=== PATIENT | female | born 1970 | race African-American/Black ===

== ENCOUNTER 2017-12-02 13:31 | Emergency (ER) | payer MEDICAID ==
[~2017-12-02] VITALS: Ht 167.6 cm; Wt 86.0 kg
[~2017-12-02 13:31] MED LIST: ACET-2708 PO; BECL8.7A6 IH; CARI350T27 PO; GABA-529 PO; ISOS20TA57 PO; ISOS30TA6 PO; METF500T4 PO; SIMV20TA6 PO
[2017-12-02] MEDS ORDERED: ONDANSETRON 4MG ODT PO ONE (15:30)
[2017-12-02] MEDS ORDERED: MORPHINE SULFATE 10 MG/ML CPJ IM ONE (15:30)
[2017-12-02 15:58] VITALS: BP 122/67
== END 2017-12-02 16:27 | disposition home or self-care (01) ==
LOC: ER 14:02
DX: M79.604 Pain in right leg (principal); G89.29 Other chronic pain; E78.00 Pure hypercholesterolemia, unspecified; E11.9 Type 2 diabetes mellitus without complications; Z88.5 Allergy status to narcotic agent; Z88.8 Allergy status to other drugs, medicaments and biological substances
CPT/HCPCS: 96372; 99283; J2270; Q0162

== ENCOUNTER 2018-05-07 11:35 | Emergency (ER) | payer MEDICAID ==
[~2018-05-07] VITALS: Ht 162.6 cm; Wt 96.0 kg
[~2018-05-07 11:35] MED LIST changes: -METF500T4 PO; +METF500T6 PO
[2018-05-07] MEDS ORDERED: FLUT100D IH (11:49)
[2018-05-07] MEDS ORDERED: BACL-141 PO (13:37)
[2018-05-07] MEDS ORDERED: GABA300S PO (13:37)
[2018-05-07] MEDS ORDERED: SIMV20TA6 PO (13:37)
[2018-05-07 15:10] LABS: CHLORIDE 108 mEq/L (98-107)
[2018-05-07 15:11] LABS: INR 1.1; PARTIAL THROMBOPLASTIN TIME 29.6 sec (23.4-31.0); PROTHROMBIN TIME 10.6 sec (9.1-11.1)
[2018-05-07 15:12] LABS: BASOPHILS % 0.9 % (0.0-2.0); EOSINOPHILS % 4.2 % (0.0-5.0); HEMATOCRIT. 38.2 % (36.0-48.0); HEMOGLOBIN. 12.6 g/dL (12.0-16.0); LYMPHOCYTES % 41.1 % (20.0-50.0); MEAN CORPUSCULAR HEMOGLOBIN 29.3 pg (28.0-32.0); MEAN CORPUSCULAR VOLUME 88.6 fL (81.0-99.0); MEAN PLATELET VOLUME 7.5 fl (7.4-10.4); MONOCYTES % 13.4 % (2.0-8.0); NEUTROPHILS % 40.4 % (40.0-76.0); PLATELET 282 x1000/uL (130-400); RED BLOOD CELL COUNT 4.31 mill/uL (4.2-5.4); RED CELL DISTRIBUTION WIDTH 14.9 % (11.6-14.6)
[2018-05-07] MEDS ORDERED: SUMATRIPTAN SUCCINATE 6MG/0.5ML VIAL SUBCUT ONE (15:15)
[2018-05-07] MEDS ORDERED: PROCHLORPERAZINE 10MG/2ML VIAL IV STA (15:35)
[2018-05-07] MEDS ORDERED: MORPHINE SULFATE 4 MG/ML CPJ (NOT FOR IM USE) IV ONE (15:45)
[2018-05-07] MEDS ORDERED: DEXAMETHASONE 10 MG/ML VIAL IV ONE (18:00)
[2018-05-07 18:29] VITALS: BP 132/67
== END 2018-05-07 18:30 | disposition home or self-care (01) ==
LOC: ER 11:35
DX: G43.109 Migraine with aura, not intractable, without status migrainosus (principal); R07.89 Other chest pain; R06.02 Shortness of breath; M54.9 Dorsalgia, unspecified; I20.9 Angina pectoris, unspecified; E78.5 Hyperlipidemia, unspecified; E11.9 Type 2 diabetes mellitus without complications; E78.00 Pure hypercholesterolemia, unspecified; Z88.4 Allergy status to anesthetic agent; Z88.6 Allergy status to analgesic agent; Z88.8 Allergy status to other drugs, medicaments and biological substances; Z79.84 Long term (current) use of oral hypoglycemic drugs
CPT/HCPCS: 36415; 71045; 80053; 81025; 83690; 84484; 85025; 85610; 85730; 93005; 96372; 96374; 96375; 99285; J0780; J1100; J2270; J3030; J7040; Z7610